=== PATIENT | male | born 1970 | race Caucasian/White ===

== ENCOUNTER 2022-10-17 08:45 | Outpatient (CLI) | payer BC, SELFPAY ==
[2022-10-17 11:28] LABS: Chloride* 106 mmol/L (96-114); Sodium* 142 mmol/L (135-149)
[2022-10-17 11:29] LABS: Potassium* 4.6 mmol/L (3.6-5.1)
[2022-10-17 11:31] LABS: Carbon Dioxide* 28 mmol/L (20-32); Cholesterol* 280 mg/dL (90-199); Estimated Glomerular Filt Rate 90 ml/min
[2022-10-17 11:32] LABS: Blood Urea Nitrogen* 22 mg/dL (7-30); Calcium* 9.8 mg/dL (8.4-10.6); Glucose* 89 mg/dL (60-115); HDL Cholesterol* 66 mg/dL (>=40); LDL Cholesterol Calculated 191 mg/dL (<100); Triglycerides* 116 mg/dL (40-149)
[2022-10-17 13:10] LABS: PSA Screen* 0.87 ng/mL (0.10-4.00)
== END 2022-10-17 08:46 | disposition home or self-care (01) ==
PROVIDERS: PCP Family Medicine; Visit Provider Family Medicine
DX: Z00.00 Encounter for general adult medical examination without abnormal findings (principal); E78.5 Hyperlipidemia, unspecified; F41.1 Generalized anxiety disorder; Z12.5 Encounter for screening for malignant neoplasm of prostate
CPT/HCPCS: 80048; 80061; 84153

== ENCOUNTER 2024-05-02 09:07 | Outpatient (CLI) | payer BC, SELFPAY | END 2024-05-02 09:08 | disposition home or self-care (01) | PROVIDERS: PCP Family Medicine; Visit Provider Family Medicine | DX: Z00.00 Encounter for general adult medical examination without abnormal findings (principal); E78.5 Hyperlipidemia, unspecified; Z12.5 Encounter for screening for malignant neoplasm of prostate; Z13.9 Encounter for screening, unspecified | CPT/HCPCS: 80048; 80061; G0103 ==

== ENCOUNTER 2024-11-03 09:02 | Outpatient (CLI) | payer BC, SELFPAY | END 2024-11-03 09:03 | disposition home or self-care (01) | PROVIDERS: PCP Family Medicine; Visit Provider Family Medicine | DX: Z01.818 Encounter for other preprocedural examination (principal) | CPT/HCPCS: 80048; 85025 ==

== ENCOUNTER 2024-12-20 06:13 | Day surgery (SDC) | payer BC, SELFPAY ==
[2024-12-20] VITALS (13 sets, daily range): BP systolic 112–130; BP diastolic 64–78; PULSE 48–67; RESP 10–20; TEMP 36.2–36.9; O2SAT 92–99; BMI 29.7
--- OUTSIDE RECORDS SUMMARY | 2024-12-20 06:17 | XMS_ITS | Clinical Summary ---
Author Organization [facility] Address [address] [place] [id number] Care Team Providers Care Cell Phone Repair Technician Name Role Phone Sami Null MD Primary Care Provider + Allergies Active Allergy Reactions Criticality Noted Date Comments Atorvastatin Mental Status Change 02/04/2015 Memory Trouble Sulfa (Sulfonamide Antibiotics) Hives 01/16/2006 Medications LORazepam (ATIVAN) 1 mg tabletIndication s:DILIP (generalized anxiety disorder) Take 1 tablet by mouth every 6 hours if needed for Anxiety. 30 tablet 5 08/20/2018 Active multivitamin (MVI) tabletIndication s:Routine general medical examination at a health care facility Take 1 tablet by mouth once daily. 0 08/20/2018 Active Active Problems Problem Noted Date Diagnosed Date DILIP (generalized anxiety disorder) 08/20/2018 Anxiety 02/04/2015 Immunizations Name Administration Dates Next Due Tdap 02/02/2015 Family History Medical History Relation Name Comments Hyperlipidemia Father Thyroid Disease Father Aneurysm Mother ruptured Good Health Mother Thyroid Disease Mother Thyroid Disease Sister Relation Name Status Comments Father Alive Mother Alive Sister Social History Tobacco Use Types Packs/Day Years Used Date Smoking Tobacco: Never Smokeless Tobacco: Never Alcohol Use Standard Drinks/Week Comments Yes 0 (1 standard drink = 0.6 oz pur e alcohol) Social PHQ-2 Answer Date Recorded PHQ-2 Score 0 12/20/2018 Sex and Gender Information Value Date Recorded Sex Assigned at Not on file Legal Sex Male 6:58 AM [employer] Gender Identity Not on file Sexual Orientation Not on file 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 Not on file Not on file Obstetrics History Last Filed Vital Signs Vital Sign Reading Time Taken Comments Blood Pressure 100/66 08/20/2018 8:45 AM CDT Pulse 64 08/20/2018 8:45 AM CDT Temperature 36.7 C (98.1 F) 01/06/2008 8:58 AM CDT Respiratory Rate 18 08/20/2018 8:45 AM CDT Oxygen Saturation - - Inhaled Oxygen Concentration - - Weight 84 kg (185 lb 3.2 oz) 08/20/2018 8:45 AM CDT Height 174.6 cm (5' 8.75) 08/20/2018 8:45 AM CD T Body Mass Index 27.55 08/20/2018 8:45 AM CDT Plan of Treatment Health Maintenance Due Date Last Done Comments HIV for age 15-65 02/06/1984 Hepatitis C screening for age 18-79 1987 Colonoscopy through age 75 2014 Pneumococcal series for age 50+ (1 of 1 - PCV) 2019 Zoster (shingles) series for age 50+ (1 of 2) 2019 BMI (ht and wt on same day) for age 18+ 08/20/2019 08/20/2018, 05/04/2017, 02/08/2016 Depression screening for age 12+ 08/20/2019 08/20/2018, 05/04/2017, 02/08/2016 Lipids for age 45-75 08/20/2023 08/20/2018, 05/04/2017, 02/08/2016, Additional history exists COVID-19 vaccine series ( season) 2024 03/01/2021, 02/08/2021 Influenza for age 50-64 06/19/2024 Tetanus booster 02/02/2025 02/02/2015 Tdap Completed 02/02/2015 Pneumococcal series for age 6-49 Aged Out No longer eligible based on patient's age to complete this topic Procedures Procedure Name Priority Date/Time Associated Diagnosis Comments LIPID PANEL W REFLEX MEASURED LDL Routine 08/20/2018 8:36 AM CDT Screening cholesterol level from Last 3 Months or Most Recently Relevant to Health Maintenance Results * (ABNORMAL) LIPID PANEL W REFLEX MEASURED LDL (08/20/2018 8:36 AM CDT) CHOLESTEROL,TOTAL 245(H) 100 - 199 mg/dL 08/20/2018 9:21 AM CDT [facility] TRIGLYCERIDES 148 <150 mg/dL 08/20/2018 9:21 AM CDT [facility] HDL CHOLESTEROL 50 >40 mg/dL 8 9:21 AM CDT [facility] NON-HDL CHOLESTEROL 195(H) <145 mg/dl 08/20/2018 9:21 AM CDT [facility] CHOL/HDL RATIO 4.90(H) <4.50 08/20/2018 9:21 AM CDT [facility] LDL CHOLESTEROL 165(H) <=130 mg/dL 08/20/2018 9:21 AM CDT [facility] PROVIDER ORDERED STATUS RANDOM 08/20/2018 9:21 AM CDT [facility] Blood BLOOD SPECIMEN / Unknown Venipuncture / Unknown 08/20/2018 8:36 AM CDT 08/20/2018 8:36 AM CDT us Sami Null MD CHEMISTRY Final Re sult [address] [id number] from Last 3 Months or Most Recently Relevant to Health [place] [address] [facility] [employer] Care Teams Cell Phone Repair Technician Relationship Specialty Start Date End Date Sami Null MD [address] [place] [address] PCP - General Family Practice 07/08/21
[2024-12-20] MEDS: SODIUM CHLORIDE 0.9 % (FLUSH) 10 ML SYRINGE IVF (06:50)
[2024-12-20] MEDS: LACTATED RINGERS 1000 ML 1,000 ML 100 ML IV (06:50)
--- NOTE | 2024-12-20 07:31 | PM.GSHP ---
History of Present Illness History of Present Illness Date Seen: 12/20/24 Chief complaint: Surgery Narrative: Farhad Ellis is a 54 year old male Who presents for repair of his umbilical hernia. He denies any change in his symptoms. No changes in his medical history or medications. Patient is a nonsmoker and otherwise healthy. Does admit to 1 beer per day. Review of Systems Status of ROS: Reports: 10 or more systems reviewed and unremarkable except as noted in History and below PFSH [facility] Medical History (Updated 10/20/22 @ 16:00 by Sami Null MD) Hyperlipidemia ?E78.5 - Hyperlipidemia, unspecified (ICD-10) Umbilical hernia ?K42.9 - Umbilical hernia without obstruction or gangrene (ICD-10) Panic attack ?F41.0 - Panic disorder [episodic paroxysmal anxiety] (ICD-10) DILIP (generalized anxiety disorder) ?F41.1 - Generalized anxiety disorder (ICD-10) Surgical History (Updated 10/09/22 @ 14:44 by Sanjiv Price) History of vasectomy ?Z98.52 - Vasectomy status (ICD-10) History of tonsillectomy ?Z90.89 - Acquired absence of other organs (ICD-10) Family History (Updated 10/09/22 @ 14:46 by Sanjiv Price) Father Hyperlipidemia Thyroid disease Mother Thyroid disease Brain aneurysm Sister Thyroid disease Alcoholism Social History (Updated 05/02/24 @ 09:11 by Sami Null MD) Narrative: , 4 kids, non-smoker, social EtOH, Works for [employer] What is your current living situation?: I presently have a place to live Problems where you live: no known problems In the past 12 months, utilities in danger of being shut off: no In past 12 months, lack of transportation kept you from medical appts, meetings, work, or getting things needed for daily living: no In the past 12 mos, have been you worried that your food would run out before you had money to buy more?: never true In the past 12 mos, the food you bought just didn't last and you didn't have money to buy more?: never true Smoking Status: Former smoker How often do you have a drink containing alcohol: 4 or more times a week AUDIT-C Alcohol total score: 4 Non-prescribed substance use: denies use How often does anyone, including family, friends and others, physically hurt you: never How often does anyone, including family, friends and others, insult or talk down to you: never How often does anyone, including family, friends and others, threaten you with harm: never How often does anyone, including family, friends and others, scream or curse at you: never Meds Home Medications and Allergies Home Medications ?Medication ?Instructions ?Recorded ?Confirmed ?Type multivitamin 1 tab PO QDAY 10/16/22 12/20/24 History omega 5-mpk-xsh-fish oil 100 1 cap PO QDAY 10/16/22 12/20/24 History mg-160 mg-1,000 mg capsule (Fish Oil) vitamin B complex (B 1 tab PO QDAY 10/16/22 12/20/24 History Complex-Vitamin B12 tablet) cholecalciferol (vitamin D3) PO 10/17/22 11/16/24 History [Dialyvite Vitamin D] Allergies Allergy/AdvReac Type Severity Reaction Status Date / Time Sulfa (Sulfonamide Allergy Intermediate Hives Verified 12/20/24 06:20 Antibiotics) atorvastatin Allergy Unknown memory Verified 12/20/24 06:20 trouble Exam Narrative: Exam Narrative: General: Alert and oriented, no acute distress respiratory: Clear breath sounds bilaterally, maintained on room air CV: Regular rhythm and rate, well perfused abdomen: Moderate-sized umbilical hernia with incarcerated preperitoneal fat. Const: Vital Signs, click to edit/add: Vital Signs - 24 hr 12/20/24 06:39 Temperature 97.7 F Pulse Rate 60 Respiratory Rate 20 Blood Pressure 117/70 Pulse Oximetry 97 Oxygen Delivery Me thod Room Air Results Results Labs: No new labs. Progress Note:A&P Assessment and plan (1) Umbilical hernia: Status: Acute Assessment and Plan: Patient presents for open repair of his umbilical hernia. No further workup needed prior to proceeding to the operating room. This documented to serve as updated history and physical.
[2024-12-20] MEDS: CEFAZOLIN 2 GM INJ IVP (07:45)
[2024-12-20] MEDS: BUPIVACAINE 0.25% 30 ML INJECTION (08:00)
--- NOTE | 2024-12-20 08:39 | PM.GSPRC ---
Operative Note Date of procedure: 12/20/24 Pre-op diagnosis: Umbilical hernia Post-op diagnosis: Same Type of Procedure: Open umbilical hernia repair with placement of mesh Indications: Patient is a 54-year-old male who presented to clinic with a symptomatic umbilical hernia. Risks and benefits of operative intervention were discussed at length with the patient. Risks included but was not limited to: Bleeding, infection, risk of damage to surrounding structures, possible need for additional procedures, risk of recurrence and postoperative complications such as pneumonia, pulmonary emboli or VT. All questions and concerns were addressed with the patient agreeing to proceed. Procedure Description: After discussing the risks and benefits of the procedure, the patient signed informed consent.? The operative site was marked and the patient was brought to the operating room and placed on the operating table in supine position.? Care was taken to pad the patient's pressure points.?? The patient was then intubated by anesthesia.?? The operative site was then prepped and draped in the usual sterile fashion.? A time-out was then performed. A curvilinear incision was made at the umbilicus. Dissection was carried down into the subcutaneous tissue using cautery. The hernia sac was encountered and all preperitoneal fat reduced. Dissection was taken down to the fascia, and the umbilical stock was carefully dissected off of the hernia sac. An additional epigastric hernia was found just above the umbilicus. The bridge of fascial tissue was transected to connect both defects. The fascial edges were then cleared circumferentially. The hernia was 4 cm in size and so the decision was made to use a piece of mesh. A preperitoneal pocket was created using a combination of blunt dissection and cautery. Hemostasis appeared adequate. Once the posterior fascia was clear, a piece of large Ventralex ST hernia mesh was placed in the preperitoneal space with care to ensure that it laid flat. This was secured into place using several 2 0 PDS interrupted sutures. The tails were then trimmed and the fascial opening was closed with a running 0 Vicryl. Local anesthetic was injected into the fascia, skin and subcutaneous tissues. The umbilicus was reapproximated to the fascia. The skin was then closed with running absorbable suture. A sterile dressing was then applied. ? The patient was then woken and transported to the recovery area in stable condition. ? The patient tolerated the procedure well. Findings: 4 cm umbilical hernia, repaired with mesh. Anesthesia: GETA Surgeon: Breanne Haque MD Estimated blood loss (mL): 5 Condition: stable Disposition: PACU
--- NOTE | 2024-12-20 08:53 | W.ANESCHARGE ---
Anesthesia Charges Start Date/Time Anesthesia Start Date: 12/20/24 Anesthesia Start Time: 07:30 Stop Date/Time Anesthesia Stop Date: 12/20/24 Anesthesia Stop Time: 08:46 Coding CPT Codes CPT Codes: ANESTH REPAIR OF HERNIA - 58518 ([id number]) P2 - PATIENT W/MILD SYST DISEASE, QX - SHIPMASTER SVC W/ MD MED DIRECTION, QK - REPRODUCTIVE HEALTHCARE ASSISTANT 2-4 CNCRNT ANES PROC
--- NOTE | 2024-12-20 08:56 | W.ANESCHARGE ---
Anesthesia Charges Start Date/Time Anesthesia Start Date: 12/20/24 Anesthesia Start Time: 07:30 Stop Date/Time Anesthesia Stop Date: 12/20/24 Anesthesia Stop Time: 08:46 Coding CPT Codes CPT Codes: ANESTH REPAIR OF HERNIA - 64589 ([id number]) QK - POWER GENERATION TURBINE ROOM OPERATOR 2-4 CNCRNT ANES PROC, QX - BUFFER NICKEL SVC W/ MD MED DIRECTION, P2 - PATIENT W/MILD SYST DISEASE
== END 2024-12-20 10:33 | disposition home or self-care (01) ==
PROVIDERS: PCP Family Medicine; Visit Provider Surgery
PROC: (CPT 49593; principal; 2024-12-20 07:30)
DX: K42.9 Umbilical hernia without obstruction or gangrene (principal); K43.9 Ventral hernia without obstruction or gangrene
CPT/HCPCS: 49593; 00750; 00830; C1781; J0330; J0665; J0690; J1100; J1885; J2250; J2405; J2704; J2710; J3010; J7120